=== PATIENT | male | born 1960 | race Two or more races ===

== ENCOUNTER 2020-10-31 00:42 | Inpatient (IN) | payer OTHER ==
[2020-10-31] VITALS (23 sets, daily range): BP systolic 103–124; BP diastolic 60–82
[~2020-10-31] VITALS: Ht 172.7 cm; Wt 81.7 kg
--- NOTE | 2020-10-31 01:09 | NUR ---
Pt BIBA, A&Ox4, thin & pale, skin cool/dry, the body with urine & stool soiled; c/o general bodyaches, cry as arms and trunk touched or moved. Cleaned the body, new gown and sheet given. Safety ensured, monitor on for ekg, oximeter and VS.
[2020-10-31 01:45] LABS: *BLOOD, URINE 3+ (NEGATIVE); *CLARITY,URINE SLIGHTLY CLOUDY (CLEAR); *COLOR,URINE YELLOW (YELLOW); *KETONES,URINE NEGATIVE (NEGATIVE); *UROBILINOGEN,URINE 0.2 E.U./dl (NORMAL); LEUKOCYTE ESTERASE ,URINE 1+ (NEGATIVE); NITRITE, URINE NEGATIVE (NEGATIVE); UGLUCOSE NEGATIVE (NEGATIVE)
[2020-10-31 01:49] LABS: EOSINOPHILS # (AUTO) 0.1 K/uL (0.0-0.7); EOSINOPHILS % (AUTO) 0.4 % (0.0-7.0); NEUTROPHILS # (AUTO) 14.3 K/uL (1.8-8.9); WHITE BLOOD COUNT (AUTO) 15.2 K/uL (3.6-10.2)
[2020-10-31 01:50] LABS: HEMATOCRIT 42.6 % (36.7-47.1); HEMOGLOBIN 14.8 g/dL (12.5-16.3); LYMPHOCYTES # (AUTO) 0.3 K/uL (20.0-40.0); LYMPHOCYTES % (AUTO) 1.8 % (20.5-51.5); MEAN CORPUSCULAR HEMOGLOBIN 34.9 uug (23.8-33.4); MEAN CORPUSCULAR HGB CONC 35 g/dL (32.5-36.3); MEAN CORPUSCULAR VOLUME 100.3 fL (73.0-96.2); MONOCYTES # (AUTO) 0.6 K/uL (2.0-10.0); MONOCYTES % (AUTO) 4.2 % (0.0-11.0); NEUTROPHILS % (AUTO) 93.6 % (38.5-71.5); RED BLOOD CELL COUNT(AUTO) 4.25 MIL/uL (4.06-5.63)
[2020-10-31 01:58] LABS: CREATININE 2.7 mg/dL (0.6-1.3); POTASSIUM 3.5 mmol/L (3.5-5.1)
[2020-10-31 02:00] LABS: *BILIRUBIN,URIN 1+ (NEGATIVE)
[2020-10-31 02:01] LABS: BACTERIA,URINE MANY /HPF (NONE SEEN); MUCUS,URINE FEW /LPF (0-FEW); RBC,URINE 20-50 /HPF (0-3); SQUAMOUS EPITHELIAL CELL,UR FEW /HPF (NONE SEEN); URINE AMORPHOUS URATE MODERATE /HPF; WBC,URINE 80-100 /HPF (0-3)
[2020-10-31 02:03] LABS: PLATELET COUNT (AUTO) 5 K/uL (152-348)
[2020-10-31 02:07] LABS: BILIRUBIN,TOTAL 1.8 mg/dL (0.2-1.0); MAGNESIUM 3.1 mg/dL (1.8-2.4); TOTAL PROTEIN, SERUM 6.9 g/dL (6.4-8.2)
[2020-10-31 02:20] LABS: ABG BASE EXCESS -3.9 mmol/L; ABG HCO3 18.2 mmol/L; ABG PCO2 26.5 mmHg (35.0-45.0); ABG PH 7.455 (7.350-7.450); ABG PO2 63.4 mmHg (75.0-100.0); ABG SITE RIGHT BRACHIAL; ABG TOTAL HEMOGLOBIN 15.1 G/dL (13.5-18.0); COHb 1.5 % (0.5-1.5); MetHb 0.3 % (0.0-1.5); VENT MODE ROOM AIR
[2020-10-31 02:33] LABS: LYMPHOCYTES % (MANUAL) 3 % (20-40); MONOCYTES % (MANUAL) 2 % (2-10); NEUTROPHILS % (MANUAL) 95 % (42-75)
[2020-10-31] MEDS ORDERED: IV NS 1000 ML 1,000 ML IV ONE (02:45)
[2020-10-31] MEDS ORDERED: CEFTRIAXONE 1 G in IV DEXTROSE 5% 50 ML IV ONE (02:45)
[2020-10-31] MEDS ORDERED: CEFTRIAXONE /D5W 50ML IVPB **ER PYXIS IV ONE (03:22)
--- NOTE | 2020-10-31 05:10 | NUR ---
Pt back from CT study. Laying quietly, eyes closed, dozed off. Comfort & safety maintained in pt.
--- NOTE | 2020-10-31 06:04 | NUR ---
Paged [employer] panel consulting business developer, waiting on John Gomez NP to call back.
--- NOTE | 2020-10-31 06:16 | NUR ---
DR Lr speaking with John Gomez NP reservation clerk for [employer] panel.
[2020-10-31] MEDS ORDERED: HYDROCODONE/APAP 5-325MG TABLET PO PRN (06:30)
[2020-10-31] MEDS ORDERED: ONDANSETRON 4 MG/2 ML VIAL IV PRN (06:30)
[2020-10-31] MEDS ORDERED: ACETAMINOPHEN 325 MG TABLET PO PRN (06:30)
[2020-10-31] MEDS ORDERED: Z GUARD REMEDY PASTE 57 GM TUBE TOP PRN (06:30)
[2020-10-31] MEDS ORDERED: NOREPINEPHRINE BITARTRATE 8 MG in IV NORMAL SALINE 242 ML IV PRN (06:30)
[2020-10-31] MEDS ORDERED: DEXTROSE 50% 50 ML DISP.SYRIN IV PRN (06:30)
[2020-10-31] MEDS ORDERED: MORPHINE SULFATE 2 MG/1 ML DISP.SYRIN IV PRN (06:30)
[2020-10-31] MEDS ORDERED: TEMAZEPAM 15 MG CAPSULE PO PRN (06:30)
--- NOTE | 2020-10-31 07:05 | NUR ---
Pt receiving platelet transfusion, no reaction observed. Pt thirsty, given 12 oz. water. Resting comfortably, engaging more lively than initial encounter.
[2020-10-31] MEDS: PANTOPRAZOLE SODIUM 40 MG TABLET.DR PO SCH (07:28)
[2020-10-31] MEDS: BLOOD SUGAR DIAGNOSTIC 1 EACH STRIP VI SCH ×4 (07:30→20:44)
--- NOTE | 2020-10-31 07:47 | NUR ---
received patient in shift report
--- NOTE | 2020-10-31 08:44 | NUR ---
Unable to transfuse second bag of platelets, Lab informed and states with call blood bank for second bag
[2020-10-31 09:23] LABS: BASOPHILS % (AUTO) 0.1 % (0.0-2.0); EOSINOPHILS % (AUTO) 0.4 % (0.0-7.0); LYMPHOCYTES # (AUTO) 0.1 K/uL (20.0-40.0); LYMPHOCYTES % (AUTO) 1.1 % (20.5-51.5)
[2020-10-31 09:25] LABS: HEMATOCRIT 42.3 % (36.7-47.1); HEMOGLOBIN 14.9 g/dL (12.5-16.3); MEAN CORPUSCULAR HEMOGLOBIN 34.9 uug (23.8-33.4); MEAN CORPUSCULAR HGB CONC 35 g/dL (32.5-36.3); MONOCYTES # (AUTO) 0.1 K/uL (2.0-10.0); MONOCYTES % (AUTO) 0.8 % (0.0-11.0); NEUTROPHILS # (AUTO) 11.4 K/uL (1.8-8.9); NEUTROPHILS % (AUTO) 97.6 % (38.5-71.5); RED BLOOD CELL COUNT(AUTO) 4.27 MIL/uL (4.06-5.63); WHITE BLOOD COUNT (AUTO) 11.7 K/uL (3.6-10.2)
--- NOTE | 2020-10-31 09:45 | NUR ---
Pt. admitted to CCU bed 2 , under care of MANAGER FLIGHT Lavonne Moctezuma Belongs List completed and all belongings sent
[2020-10-31 09:49] LABS: PLATELET COUNT (AUTO) 9 K/uL (152-348)
[2020-10-31] MEDS ORDERED: PIPERACILLIN/TAZO 2.25 G in IV DEXTROSE 5% 50 ML IV ONE (12:00)
[2020-10-31] MEDS ORDERED: MEROPENEM 1 G in IV NORMAL SALINE 100 ML IV ONE (13:00)
--- NOTE | 2020-10-31 13:00 | NUR ---
JEET MOTOR SCOOTER REPAIRER/ AND STUDENT IN TO INTERVIEW PATIENT WILL CONSULT HEMOTOLOGY. ADDITIONAL LABS WILL BE ORDERED FOR DIC AND D-DIMER. CONSULTED ID
[2020-10-31] MEDS: INSULIN REGULAR, HUMAN 300 UNIT/3 ML VIAL SQ PRN ×2 (13:37→18:37)
[2020-10-31] MEDS ORDERED: methylPREDNISolone SOD SUCC 125 MG/2 ML VIAL IV STA (17:49)
[2020-10-31 18:20] LABS: BASOPHILS % (AUTO) 0.2 % (0.0-2.0); EOSINOPHILS % (AUTO) 0.1 % (0.0-7.0); HEMATOCRIT 39.6 % (36.7-47.1); HEMOGLOBIN 13.7 g/dL (12.5-16.3); LYMPHOCYTES # (AUTO) 0.2 K/uL (20.0-40.0); LYMPHOCYTES % (AUTO) 1.6 % (20.5-51.5); MEAN CORPUSCULAR HEMOGLOBIN 34.2 uug (23.8-33.4); MEAN CORPUSCULAR HGB CONC 35 g/dL (32.5-36.3); MEAN CORPUSCULAR VOLUME 98.9 fL (73.0-96.2); MONOCYTES % (AUTO) 0.2 % (0.0-11.0); NEUTROPHILS # (AUTO) 12.9 K/uL (1.8-8.9); NEUTROPHILS % (AUTO) 97.9 % (38.5-71.5); WHITE BLOOD COUNT (AUTO) 13.2 K/uL (3.6-10.2)
[2020-10-31 18:22] LABS: PLATELET COUNT (AUTO) 25 K/uL (152-348)
--- NOTE | 2020-10-31 18:23 | NUR ---
ID ORDERED 2ND BLOOD CULTURES. LAB IN THE UNIT TO DRAW. JOSUÉ HEMOTOLOGY PATIENT HISTORY OF LUPUS WILL START SOLUMEDROL IV TO MAINTAIN PLATELET LEVEL EFFECTIVELY WITH TRANSFUSION. LAB CALLED PLATELET LEVEL TO 25 TREND INCREASING. NO NEED TO INFORM PHYSICIAN. CONTINUE TO TRANSFUSE 3RD UNIT OF PLATELET. LAB CALLED [facility] THAT PLATELET READY.
[2020-10-31] MEDS: methylPREDNISolone SOD SUCC 125 MG/2 ML VIAL IV SCH ×2 (18:44→22:16)
--- NOTE | 2020-10-31 19:30 | NUR ---
Report received. Patient awake, alert eating dinner. NAD noted and able to make needs known. Complete assessment done. Addendum: 11/01/20 at 0204 by ELISSA MUÑOZ RN Amended: Links added.
[2020-10-31] MEDS ORDERED: PIPERACILLIN SODIUM/TAZOBACTAM 3.37 G in IV DEXTROSE 5% 100 ML IV SCH (20:00)
--- NOTE | 2020-10-31 20:07 | NUR ---
Platelets transfusion started via RAC IV site.
[2020-10-31] MEDS: INSULIN REGULAR, HUMAN 300 UNITS/3 ML VIAL SQ PRN (20:47)
[2020-10-31] MEDS: IV NS 1000 ML 1,000 ML IV PRN (20:49)
--- NOTE | 2020-10-31 21:00 | NUR ---
Spoke to Rambo Moctezuma re: platelets transfusion. Order received to repeat CBC after 2 units of platelets are completed.
[2020-10-31 22:13] LABS: BAND % (MANUAL) 9 % (0-10); LYMPHOCYTES % (MANUAL) 1 % (20-40); METAMYELOCYTES % 2 % (0-1); MONOCYTES % (MANUAL) 1 % (2-10); NEUTROPHILS % (MANUAL) 87 % (42-75)
[2020-10-31 22:17] LABS: BAND % (MANUAL) 6 % (0-10); LYMPHOCYTES % (MANUAL) 2 % (20-40); METAMYELOCYTES % 2 % (0-1); MONOCYTES % (MANUAL) 1 % (2-10); NEUTROPHILS % (MANUAL) 89 % (42-75)
[2020-10-31 23:53] LABS: *RHEUMATOID FACTOR SCREEN NEGATIVE (NEGATIVE)
--- NOTE | 2020-10-31 23:56 | NUR ---
Platelets transfusion completed. Repeat CBC ordered.
[2020-11-01] VITALS (28 sets, daily range): BP systolic 103–131; BP diastolic 62–83
[2020-11-01 00:13] LABS: BASOPHILS % (AUTO) 0.4 % (0.0-2.0); EOSINOPHILS % (AUTO) 0.1 % (0.0-7.0); HEMATOCRIT 39.6 % (36.7-47.1); HEMOGLOBIN 13.8 g/dL (12.5-16.3); LYMPHOCYTES # (AUTO) 0.3 K/uL (20.0-40.0); LYMPHOCYTES % (AUTO) 2.5 % (20.5-51.5); MEAN CORPUSCULAR HEMOGLOBIN 34.6 uug (23.8-33.4); MEAN CORPUSCULAR HGB CONC 35 g/dL (32.5-36.3); MONOCYTES # (AUTO) 0.3 K/uL (2.0-10.0); MONOCYTES % (AUTO) 3.3 % (0.0-11.0); NEUTROPHILS # (AUTO) 9.6 K/uL (1.8-8.9); NEUTROPHILS % (AUTO) 93.7 % (38.5-71.5); PLATELET COUNT (AUTO) 53 K/uL (152-348); WHITE BLOOD COUNT (AUTO) 10.3 K/uL (3.6-10.2)
--- NOTE | 2020-11-01 00:30 | NUR ---
Results of platelet count called to Juan Carlos Gomez; order received. Lab notified, spoke to Sukhjinder re: 1 unit platelets ordered. As per Sukhjinder it wont be ready until professor of early childhood education. Addendum: 11/01/20 at 0320 by ELISSA MUÑOZ RN Amended: Links added.
[2020-11-01] MEDS: MEROPENEM 1 G in IV NORMAL SALINE 100 ML IV SCH ×2 (00:37→13:09)
[2020-11-01 05:05] LABS: BASOPHILS % (AUTO) 0.1 % (0.0-2.0); MONOCYTES # (AUTO) 0.1 K/uL (2.0-10.0); RED BLOOD CELL COUNT(AUTO) 4.13 MIL/uL (4.06-5.63)
[2020-11-01 05:07] LABS: EOSINOPHILS % (AUTO) 0.2 % (0.0-7.0); HEMOGLOBIN 14.3 g/dL (12.5-16.3); LYMPHOCYTES # (AUTO) 0.3 K/uL (20.0-40.0); LYMPHOCYTES % (AUTO) 2.6 % (20.5-51.5); MEAN CORPUSCULAR HEMOGLOBIN 34.5 uug (23.8-33.4); MEAN CORPUSCULAR HGB CONC 35 g/dL (32.5-36.3); MEAN CORPUSCULAR VOLUME 99.2 fL (73.0-96.2); MONOCYTES % (AUTO) 1.2 % (0.0-11.0); NEUTROPHILS # (AUTO) 9.2 K/uL (1.8-8.9); NEUTROPHILS % (AUTO) 95.9 % (38.5-71.5); WHITE BLOOD COUNT (AUTO) 9.6 K/uL (3.6-10.2)
[2020-11-01 05:12] LABS: PLATELET COUNT (AUTO) 37 K/uL (152-348)
[2020-11-01 05:13] LABS: CREATININE 1.6 mg/dL (0.6-1.3); PHOSPHOROUS 4.2 mg/dL (2.5-4.9); POTASSIUM 3.6 mmol/L (3.5-5.1)
[2020-11-01 05:22] LABS: THYROID STIMULATING HORMONE 0.53 mIU/mL (0.358-3.740)
[2020-11-01] MEDS: methylPREDNISolone SOD SUCC 125 MG/2 ML VIAL IV SCH ×3 (05:42→22:05)
--- NOTE | 2020-11-01 05:55 | NUR ---
Abnormal labs including platelet count called to Juan Carlos Gomez; orders received. Addendum: 11/01/20 at 0649 by ELISSA MUÑOZ RN Amended: Links added.
[2020-11-01] MEDS: PANTOPRAZOLE SODIUM 40 MG TABLET.DR PO SCH (06:33)
[2020-11-01] MEDS: BLOOD SUGAR DIAGNOSTIC 1 EACH STRIP VI SCH ×4 (06:52→20:48)
[2020-11-01] MEDS: INSULIN REGULAR, HUMAN 300 UNIT/3 ML VIAL SQ PRN ×3 (06:53→17:07)
--- NOTE | 2020-11-01 07:20 | NUR ---
Platelet infusing without problems. VS stable.
--- NOTE | 2020-11-01 09:03 | NUR ---
pt completed tranfusion of platelets which was started from lead pastor. no adverse reactions noted. repeat platelet lab also completed showing an increase from 37 to 49, however still low. lab results relayed to RASHARD Lawrence with new order to give another bag of platelets followed by repeat lab. order placed and blood bank called. per blood bank, they usually don't have it in stock and have to order it which will take around 4-5 hours. RASHARD Lawrence informed.
--- NOTE | 2020-11-01 09:14 | NUR ---
rehab services PT at bedside for assessment/evaluation
[2020-11-01] MEDS ORDERED: MORPHINE SULFATE 4 MG/1 ML DISP.SYRIN IV PRN (09:15)
--- NOTE | 2020-11-01 09:25 | NUR ---
pt completed PT evaluation. Per PT, pt tolerated well and was able to stand up and take side steps.
--- NOTE | 2020-11-01 10:36 | NUR ---
Jesse Valdez in the unit to see and assess pt. full report given
--- NOTE | 2020-11-01 12:20 | NUR ---
correction note EMAR: pt accucheck AC lunch was 338. given 12 units regular insulin (humulin R) as per sliding scale. initial documentation on emar incorrectly written as 8 units however pt received 12 units correctly as ordered.
--- NOTE | 2020-11-01 13:03 | NUR ---
pt seen and assessed by ALLI José who is working with Dr. Arnaldo Lawrence. full report given. she asked if needed something from Dr. Lawrence, informed her that per shift mgr, ask provider if they want to order Lantus for night time as pt's accuchecks have been in the 300s. She said she will check his hgba1c first and follow up with Dr. Lawrence
[2020-11-01] MEDS: IV NS 1000 ML 1,000 ML IV PRN (13:09)
--- NOTE | 2020-11-01 14:26 | NUR ---
received telephone call from RASHARD Lawrence. Per Dr. Lawrence, pt is okay to go to IR for nephrostomy placement. informed Dr. Lawrence that pt is currently receiving platelets and he said pt can go to IR after platelet infusion. Asked if he wanted to re-order platelet lab after transfusion and he said no need, pt can just go to IR. also asked Dr. Lawrence if he's placing order for procedure and he said there is already an order. Informed him that the only order I see states if platelets >80 may continue with nephrostomy tube. per Dr. Lawrence change order to okay for pt to go to IR for nephrostomy placement
--- NOTE | 2020-11-01 14:48 | NUR ---
Called radiology to follow up on IR guided left nephostomy tube placement for pt. Obtain tel# [phone] Garland who will be doing procedure. Spoke to Dr. Garland on the telephone to ask he will be doing it today and ask if he has any orders. Per , procedure will likely not happen today but maybe tomorrow morning. also asked about pt's platelet and INR level to which I informed him. Also informed MD that pt currently has platelets running right now. New orders received from for repeat platelet lab tomorrow morning and NPO after midnight. stated that he will call RASHARD Lawrence regarding the procedure because he does not think there is enough hydronephrosis on the CT scan for pt to need the procedure at this time. I left messsage for RASHARD Lawrence about what Dr. Garland stated. will follow up if procedure will still happen tomorrow and if pt needs to be NPO at midnight.
--- NOTE | 2020-11-01 15:06 | NUR ---
Received call from radiology that Dr. Garland had already spoken to RASHARD Lawrence about the procedure and that it has been decided the procedure will not happen at this time. RASHARD Lawrence cancelled order for procedure. Addendum: 11/01/20 at 1509 by JARRETT RAI RN pt is informed that procedure will not happen
--- NOTE | 2020-11-01 16:20 | NUR ---
SCARIFIER OPERATOR Holli Gregory in the unit to see and assess pt. full report given
--- NOTE | 2020-11-01 16:21 | NUR ---
pt completed platelet transfusion with no adverse reactions noted. see transfusion sheet
--- NOTE | 2020-11-01 19:01 | NUR ---
shift report given to planning aide RN. pt in bed, alert and verbally responsive, able to make needs known. pt was placed on 1st step mattress. pt on room air. pt on NS @75ml/hr, RAC and (L) wrist peripheral IV access both patent. Jones cath in place. VSS. pt given kept clean and dry.
--- NOTE | 2020-11-01 19:30 | NUR ---
Report received; care assumed. Patient sleeping easily awakens to name, oriented to place and time. Mumbles at times. NAD noted. Monitor SR rate 80's -90's. Denies any discomfort but with mild generalized weakness. Turned and repositioned. Assessment done; see flow sheet for complete data. Addendum: 11/01/20 at 2232 by ELISSA MUÑOZ RN Amended: Links added. Addendum: 11/01/20 at 2235 by ELISSA MUÑOZ RN Amended: Links added.
--- NOTE | 2020-11-01 20:20 | NUR ---
Seen by Tram WHEEL CLEANER; updated of patient's condition. No new orders.
[2020-11-01] MEDS: INSULIN REGULAR, HUMAN 300 UNITS/3 ML VIAL SQ PRN (20:57)
[2020-11-01] MEDS ORDERED: INSULIN GLARGINE,HUM 300 UNITS/3 ML CARTRIDGE SQ SCH (21:00)
--- NOTE | 2020-11-01 21:15 | NUR ---
Dr. Iraheta here; informed of patient's condition. No new orders. Addendum: 11/01/20 at 2236 by ELISSA MUÑOZ RN Amended: Links added.
--- NOTE | 2020-11-01 21:30 | NUR ---
Sleeping, desaturates to the 80's when asleep. Awakens easily. Placed on O2 2L NC. Monitored closely. Addendum: 11/01/20 at 2345 by ELISSA MUÑOZ RN Amended: Links added. Addendum: 11/01/20 at 2346 by ELISSA MUÑOZ RN Amended: Links added. Addendum: 11/01/20 at 2346 by ELISSA MUÑOZ RN Amended: Links added. Addendum: 11/01/20 at 2346 by ELISSA MUÑOZ RN Amended: Links added. Addendum: 11/01/20 at 2347 by ELISSA MUÑOZ RN Amended: Links added. Addendum: 11/01/20 at 2347 by ELISSA MUÑOZ RN Amended: Links added. Addendum: 11/02/20 at 0010 by ELISSA MUÑOZ RN Amended: Links added.
[2020-11-02] VITALS (17 sets, daily range): BP systolic 97–127; BP diastolic 60–87
[2020-11-02] MEDS: MEROPENEM 1 G in IV NORMAL SALINE 100 ML IV SCH ×2 (01:07→14:33)
[2020-11-02] MEDS: IV NS 1000 ML 1,000 ML IV PRN ×2 (03:59→20:06)
[2020-11-02 05:06] LABS: HEPATITIS B SURFACE AB Non Reactive (.); HEPATITIS B SURFACE AG Positive (Negative)
[2020-11-02] MEDS: methylPREDNISolone SOD SUCC 125 MG/2 ML VIAL IV SCH ×3 (05:21→21:28)
[2020-11-02 05:25] LABS: LYMPHOCYTES # (AUTO) 0.3 K/uL (20.0-40.0); MONOCYTES # (AUTO) 0.6 K/uL (2.0-10.0); NEUTROPHILS # (AUTO) 12.2 K/uL (1.8-8.9); WHITE BLOOD COUNT (AUTO) 13.1 K/uL (3.6-10.2)
[2020-11-02 05:27] LABS: BASOPHILS % (AUTO) 0.1 % (0.0-2.0); HEMATOCRIT 38.3 % (36.7-47.1); HEMOGLOBIN 13.3 g/dL (12.5-16.3); LYMPHOCYTES % (AUTO) 2.2 % (20.5-51.5); MEAN CORPUSCULAR HEMOGLOBIN 34.8 uug (23.8-33.4); MEAN CORPUSCULAR HGB CONC 35 g/dL (32.5-36.3); MEAN CORPUSCULAR VOLUME 100.1 fL (73.0-96.2); MONOCYTES % (AUTO) 4.8 % (0.0-11.0); NEUTROPHILS % (AUTO) 92.9 % (38.5-71.5); RED BLOOD CELL COUNT(AUTO) 3.82 MIL/uL (4.06-5.63)
[2020-11-02 05:41] LABS: PLATELET COUNT (AUTO) 36 K/uL (152-348)
[2020-11-02] MEDS: PANTOPRAZOLE SODIUM 40 MG TABLET.DR PO SCH (06:26)
[2020-11-02] MEDS: BLOOD SUGAR DIAGNOSTIC 1 EACH STRIP VI SCH ×4 (06:37→20:16)
--- NOTE | 2020-11-02 06:45 | NUR ---
Spoke to Juan Carlos Gomez re: low platelets. No transfusion order for now. Patient remains on O2 2L NC; still desaturates when fast asleep. BPs stable.
[2020-11-02] MEDS: INSULIN REGULAR, HUMAN 300 UNIT/3 ML VIAL SQ PRN ×3 (07:19→16:38)
[2020-11-02] MEDS: GLUCERNA SHAKE VANILLA 237 ML CAN PO SCH (08:21)
--- NOTE | 2020-11-02 09:30 | NUR ---
Pt.was seen by ALONDRA NUR NP
[2020-11-02 09:43] LABS: BILIRUBIN,DIRECT 0.3 mg/dL (0.0-0.2); BILIRUBIN,TOTAL 0.9 mg/dL (0.2-1.0); TOTAL PROTEIN, SERUM 5.5 g/dL (6.4-8.2)
[2020-11-02 10:42] LABS: CREATININE 1.3 mg/dL (0.6-1.3)
[2020-11-02 10:52] LABS: POTASSIUM 3.6 mmol/L (3.5-5.1)
--- NOTE | 2020-11-02 11:50 | NUR ---
Pt.was seen by ANDREW ASIF DNP
[2020-11-02] MEDS ORDERED: INSULIN LISPRO 1000 UNITS/10 ML VIAL(HUMALOG) SQ SCH (12:15)
[2020-11-02] MEDS ORDERED: INSULIN REGULAR, HUMAN 300 UNITS/3 ML VIAL SQ PRN (12:30)
--- NOTE | 2020-11-02 14:40 | NUR ---
SBAR REPORT GIVEN TO JANNET.PT.TRANSFERRED TO 302.TOLERATED WELL,NO S/S OF DISTRESS.
--- NOTE | 2020-11-02 14:46 | NUR ---
pt received from ccu via wheel chair in stable condition to room 302 ,pt is [id number] are stable call light with in reach
[2020-11-02 16:29] LABS: ANTI-DNA(DS) AB, QN 1
[2020-11-02 16:30] LABS: *ANTI-SCLERODERMA-70 AB <0.2; *SJOGREN'S ANTI-SS-A <0.2; *SMITH ANTIBODIES <0.2
[2020-11-02 16:31] LABS: *SJOGREN'S ANTI-SS-B <0.2
[2020-11-02 16:34] LABS: *IMMUNOGLOBULIN G, SERUM 1031; IMMUNOGLOBULIN A, SERUM 373
[2020-11-02 16:35] LABS: IMMUNOGLOBULIN M, SERUM 63
[2020-11-02 16:45] LABS: ALBUMIN 2.3 LOW
[2020-11-02 16:46] LABS: ALPHA-1-GLOBULIN 0.4; ALPHA-2-GLOBULIN 0.8
[2020-11-02 16:47] LABS: GLOBULIN, TOTAL 3.2; M-SPIKE Not Observed
[2020-11-02 16:48] LABS: A/G RATIO 0.7
[2020-11-02 17:05] LABS: *OCCULT BLOOD STOOL POSITIVE (NEGATIVE)
[2020-11-02] MEDS ORDERED: INSULIN GLARGINE,HUM 300 UNITS/3 ML CARTRIDGE SQ SCH (21:00)
[2020-11-03] MEDS: MEROPENEM 1 G in IV NORMAL SALINE 100 ML IV SCH
[2020-11-03 05:33] VITALS: BP 94/56
[2020-11-03] MEDS: methylPREDNISolone SOD SUCC 125 MG/2 ML VIAL IV SCH ×2 (06:08→14:22)
[2020-11-03] MEDS: PANTOPRAZOLE SODIUM 40 MG TABLET.DR PO SCH (06:09)
[2020-11-03] MEDS: BLOOD SUGAR DIAGNOSTIC 1 EACH STRIP VI SCH ×4 (06:36→21:12)
--- NOTE | 2020-11-03 06:36 | NUR ---
Pt slept throughout the night. Denies pain or SOB. On 2L NC throughout the night for comfort and to prevent pt from desating. Saturated 96%. Tolerated all medications well, IV site patent and intact. Bed is locked and in lowest position, call light is within reach. No other issues or concerns at this time. Will endorse to day shift.
[2020-11-03 07:16] LABS: CREATININE 0.9 mg/dL (0.6-1.3); MAGNESIUM 1.9 mg/dL (1.8-2.4); PHOSPHOROUS 3.2 mg/dL (2.5-4.9); POTASSIUM 3.7 mmol/L (3.5-5.1)
--- NOTE | 2020-11-03 07:30 | NUR ---
received change of shift report. pt awake alert and orientedx4, pt is bedbound, uses knapp to void, incontinent, pt in diaper. pt on 2L O2 saturating at 98%, no signs of distress, no reports of pain at this time. IV site on the right FA 20g IVF infusing at 75cc. Pt on first step mattress, bed in low and locked position, call light within reach, safety and fall precautions in place, HOB semi fowlers, side rails upx2. Will continue with plan of care.
[2020-11-03 09:00] LABS: BASOPHILS # (AUTO) 0.2 K/uL (0.0-8.0); BASOPHILS % (AUTO) 1.3 % (0.0-2.0); HEMATOCRIT 38.8 % (36.7-47.1); HEMOGLOBIN 13.2 g/dL (12.5-16.3); LYMPHOCYTES # (AUTO) 0.3 K/uL (20.0-40.0); LYMPHOCYTES % (AUTO) 1.7 % (20.5-51.5); MEAN CORPUSCULAR HEMOGLOBIN 34.1 uug (23.8-33.4); MEAN CORPUSCULAR HGB CONC 34 g/dL (32.5-36.3); MONOCYTES % (AUTO) 0.2 % (0.0-11.0); NEUTROPHILS # (AUTO) 18.7 K/uL (1.8-8.9); NEUTROPHILS % (AUTO) 96.8 % (38.5-71.5); RED BLOOD CELL COUNT(AUTO) 3.87 MIL/uL (4.06-5.63); WHITE BLOOD COUNT (AUTO) 19.3 K/uL (3.6-10.2)
[2020-11-03 09:05] LABS: PLATELET COUNT (AUTO) 38 K/uL (152-348)
[2020-11-03] MEDS: GLUCERNA SHAKE VANILLA 237 ML CAN PO SCH (09:30)
[2020-11-03] MEDS: INSULIN REGULAR, HUMAN 300 UNIT/3 ML VIAL SQ PRN ×3 (09:33→17:43)
[2020-11-03 10:06] LABS: *ANTI-SCLERODERMA-70 AB <0.2 AI (0.0-0.9); *SJOGREN'S ANTI-SS-A <0.2 AI (0.0-0.9); *SJOGREN'S ANTI-SS-B <0.2 AI (0.0-0.9); *SMITH ANTIBODIES <0.2 AI (0.0-0.9); ANTI-DNA(DS) AB, QN 1 IU/mL (0-9)
[2020-11-03] MEDS: levoFLOXacin 750 MG TABLET PO SCH (11:10)
[2020-11-03 12:35] VITALS: BP 101/65
--- NOTE | 2020-11-03 13:30 | NUR ---
handoff report given to Shantelle.
[2020-11-03 15:07] VITALS: BP 113/72
[2020-11-03 16:04] LABS: BAND % (MANUAL) 2 % (0-10); LYMPHOCYTES % (MANUAL) 4 % (20-40); MONOCYTES % (MANUAL) 2 % (2-10); NEUTROPHILS % (MANUAL) 92 % (42-75)
--- NOTE | 2020-11-03 18:52 | NUR ---
pt in bed resting, awake alert and oriented x4, pt is bed bound, uses knapp to void, pt is incontinent, has diaper. pt on 1L NC O2, no signs of distress noted, no reports of pain at this time. IV access on the right FA 20g, patent and intact, saline lock. pt ACHS accuchecks. bed in low and locked position, call light within reach, all medications given as ordered, will endorse to oncoming nurse.
--- NOTE | 2020-11-03 20:00 | NUR ---
Received pt in bed, awake and verbally responsive, able to make needs known. On room air saturating 99%, no s/s of respiratory distress. Denies any pain at this moment. IV access intact and patent, Jones draining well. Safety measures initiated, call light within reach, will continue to monitor.
[2020-11-03 20:56] VITALS: BP 102/64
[2020-11-03] MEDS: TAMSULOSIN HCL 0.4 MG CAP.SR.24H PO SCH (21:11)
[2020-11-03] MEDS: INSULIN GLARGINE,HUM 300 UNITS/3 ML CARTRIDGE SQ SCH (21:15)
[2020-11-04 05:11] VITALS: BP 93/63
--- NOTE | 2020-11-04 05:54 | NUR ---
Pt slept through the night, no s/s/ of respiratory distress, no pain or discomfort reported, tolerated medications well. Jones draining well. Safety measures maintained at all times, call light within reach, all needs attended.
[2020-11-04] MEDS: PANTOPRAZOLE SODIUM 40 MG TABLET.DR PO SCH (06:15)
[2020-11-04] MEDS: BLOOD SUGAR DIAGNOSTIC 1 EACH STRIP VI SCH ×4 (06:52→21:20)
[2020-11-04] MEDS: INSULIN REGULAR, HUMAN 300 UNIT/3 ML VIAL SQ PRN ×3 (07:25→16:36)
[2020-11-04] MEDS: GLUCERNA SHAKE VANILLA 237 ML CAN PO SCH (07:54)
[2020-11-04] MEDS: levoFLOXacin 750 MG TABLET PO SCH (09:38)
[2020-11-04 09:39] LABS: EOSINOPHILS % (AUTO) 0.3 % (0.0-7.0); HEMATOCRIT 40.6 % (36.7-47.1); HEMOGLOBIN 13.8 g/dL (12.5-16.3); LYMPHOCYTES # (AUTO) 0.5 K/uL (20.0-40.0); LYMPHOCYTES % (AUTO) 3.2 % (20.5-51.5); MEAN CORPUSCULAR HEMOGLOBIN 34.1 uug (23.8-33.4); MEAN CORPUSCULAR HGB CONC 34 g/dL (32.5-36.3); MEAN CORPUSCULAR VOLUME 100.1 fL (73.0-96.2); MONOCYTES # (AUTO) 0.1 K/uL (2.0-10.0); MONOCYTES % (AUTO) 0.5 % (0.0-11.0); NEUTROPHILS # (AUTO) 14.3 K/uL (1.8-8.9); RED BLOOD CELL COUNT(AUTO) 4.05 MIL/uL (4.06-5.63)
[2020-11-04 09:44] LABS: CREATININE 0.9 mg/dL (0.6-1.3); MAGNESIUM 1.5 mg/dL (1.8-2.4); PHOSPHOROUS 2.8 mg/dL (2.5-4.9); POTASSIUM 3.9 mmol/L (3.5-5.1)
[2020-11-04 09:55] LABS: PLATELET COUNT (AUTO) 43 K/uL (152-348)
[2020-11-04 11:54] LABS: BAND % (MANUAL) 1 % (0-10); EOSINOPHILS % (MANUAL) 1 % (0-8); LYMPHOCYTES % (MANUAL) 5 % (20-40); MONOCYTES % (MANUAL) 1 % (2-10); NEUTROPHILS % (MANUAL) 92 % (42-75)
[2020-11-04 12:23] VITALS: BP 90/51
[2020-11-04 13:21] VITALS: BP_SYST 86; BP_SYST 88; BP_SYST 94; BP_DIAS 58; BP_DIAS 60; BP_DIAS 64
[2020-11-04] MEDS ORDERED: IV NS 1000 ML 1,000 ML IV ONE (14:30)
[2020-11-04] MEDS ORDERED: ALBUMIN HUMAN 25% 100 ML IV ONE (14:30)
[2020-11-04 15:35] VITALS: BP 109/68
[2020-11-04] MEDS: TAMSULOSIN HCL 0.4 MG CAP.SR.24H PO SCH (20:28)
[2020-11-04 20:43] VITALS: BP 90/52
[2020-11-04] MEDS: INSULIN GLARGINE,HUM 300 UNITS/3 ML CARTRIDGE SQ SCH (22:27)
[2020-11-05 04:54] VITALS: BP 92/53
[2020-11-05] MEDS: PANTOPRAZOLE SODIUM 40 MG TABLET.DR PO SCH (06:45)
[2020-11-05] MEDS: BLOOD SUGAR DIAGNOSTIC 1 EACH STRIP VI SCH ×3 (06:52→16:30)
[2020-11-05 06:54] LABS: BASOPHILS % (AUTO) 0.1 % (0.0-2.0); EOSINOPHILS # (AUTO) 0.1 K/uL (0.0-0.7); EOSINOPHILS % (AUTO) 0.5 % (0.0-7.0); HEMATOCRIT 39.2 % (36.7-47.1); HEMOGLOBIN 13.4 g/dL (12.5-16.3); LYMPHOCYTES # (AUTO) 0.6 K/uL (20.0-40.0); LYMPHOCYTES % (AUTO) 3.9 % (20.5-51.5); MEAN CORPUSCULAR HEMOGLOBIN 34.3 uug (23.8-33.4); MEAN CORPUSCULAR HGB CONC 34 g/dL (32.5-36.3); MEAN CORPUSCULAR VOLUME 100.2 fL (73.0-96.2); MONOCYTES # (AUTO) 0.4 K/uL (2.0-10.0); MONOCYTES % (AUTO) 2.4 % (0.0-11.0); NEUTROPHILS # (AUTO) 14.7 K/uL (1.8-8.9); NEUTROPHILS % (AUTO) 93.1 % (38.5-71.5); RED BLOOD CELL COUNT(AUTO) 3.91 MIL/uL (4.06-5.63); WHITE BLOOD COUNT (AUTO) 15.7 K/uL (3.6-10.2)
--- NOTE | 2020-11-05 07:03 | NUR ---
End of Shift Report: Patient slept most of the night, AOx3, no s/s of respiratory distress, no pain or discomfort reported, tolerated medications well. Jones intact and draining well. Safety measures maintained at all times, call light within reach, bed is in low locked position with side rails x2. All needs attended to promptly. Will endorse to the oncoming shift
[2020-11-05 07:06] LABS: MAGNESIUM 1.6 mg/dL (1.8-2.4); PHOSPHOROUS 3.6 mg/dL (2.5-4.9); POTASSIUM 4.3 mmol/L (3.5-5.1)
[2020-11-05 07:26] LABS: PLATELET COUNT (AUTO) 44 K/uL (152-348)
[2020-11-05] MEDS: GLUCERNA SHAKE VANILLA 237 ML CAN PO SCH (07:57)
[2020-11-05] MEDS: levoFLOXacin 750 MG TABLET PO SCH (09:54)
[2020-11-05] MEDS ORDERED: TEMA15CA5 PO (10:23)
[2020-11-05] MEDS ORDERED: TAMS-3 PO (10:23)
[2020-11-05] MEDS ORDERED: PANT40TA2 PO (10:23)
[2020-11-05] MEDS ORDERED: ACET325T53 PO (10:23)
[2020-11-05] MEDS ORDERED: levoFLOXacin PO (10:23)
[2020-11-05] MEDS ORDERED: Insulin Glargine,Hum SQ (10:23)
[2020-11-05] MEDS ORDERED: MIDO2.5T2 PO (10:23)
[2020-11-05] MEDS ORDERED: IV NS 1000 ML 1,000 ML IV ONE (10:45)
[2020-11-05] MEDS: MIDODRINE HCL 2.5 MG TABLET PO SCH ×2 (11:21→15:23)
[2020-11-05] MEDS: INSULIN REGULAR, HUMAN 300 UNIT/3 ML VIAL SQ PRN (11:23)
[2020-11-05] MEDS: MAGNESIUM SULFATE/D5W 100 ML IV SCH ×4 (11:27→14:08)
[2020-11-05 12:00] VITALS: BP 88/55
--- NOTE | 2020-11-05 12:46 | NUR ---
dc fc per md order 1000 ml urine out put noted
--- NOTE | 2020-11-05 14:22 | NUR ---
rn report given to half-way erick avendaño
[2020-11-05 15:07] LABS: LYMPHOCYTES % (MANUAL) 6 % (20-40); MONOCYTES % (MANUAL) 4 % (2-10); NEUTROPHILS % (MANUAL) 90 % (42-75)
[2020-11-05 16:00] VITALS: BP 85/50
--- NOTE | 2020-11-05 18:51 | NUR ---
dc orders received noted and carried out.dc instruction and rn report given to the retirement ,xuan benítez per md orders,pt left the facility via ambulances in stable condition
== END 2020-11-05 18:55 | DRG 720 ==
LOC: ER 00:44 → CCU 09:25 → MEDSURG3 11-02 14:36
PROVIDERS: ADMIT Registered Nurse; ATTEND Nurse Practitioner Acute Care
PROC: 30233R1 Transfusion of Nonautologous Platelets into Peripheral Vein, Percutaneous Approach (ICD-10-PCS; principal; 2020-10-31)
DX: A41.51 Sepsis due to Escherichia coli [E. coli] (principal); N17.0 Acute kidney failure with tubular necrosis; E43 Unspecified severe protein-calorie malnutrition; I50.33 Acute on chronic diastolic (congestive) heart failure; N13.6 Pyonephrosis; D69.59 Other secondary thrombocytopenia; M32.19 Other organ or system involvement in systemic lupus erythematosus; D53.9 Nutritional anemia, unspecified; E83.41 Hypermagnesemia; Z20.822 Contact with and (suspected) exposure to COVID-19; I25.10 Atherosclerotic heart disease of native coronary artery without angina pectoris; Z95.2 Presence of prosthetic heart valve; Z95.1 Presence of aortocoronary bypass graft; Z82.3 Family history of stroke; Z74.01 Bed confinement status; Z91.81 History of falling; R74.01 Elevation of levels of liver transaminase levels; E88.09 Other disorders of plasma-protein metabolism, not elsewhere classified; E11.22 Type 2 diabetes mellitus with diabetic chronic kidney disease; R19.5 Other fecal abnormalities; Z91.19 Patient's noncompliance with other medical treatment and regimen; E11.65 Type 2 diabetes mellitus with hyperglycemia; E87.0 Hyperosmolality and hypernatremia; G72.81 Critical illness myopathy; M32.9 Systemic lupus erythematosus, unspecified; Z68.27 Body mass index [BMI] 27.0-27.9, adult; Z79.4 Long term (current) use of insulin; E86.0 Dehydration; I95.9 Hypotension, unspecified; F19.11 Other psychoactive substance abuse, in remission; B19.10 Unspecified viral hepatitis B without hepatic coma
CPT/HCPCS: 36415; 36600; 70030-TC; 71045; 82784; 83735; 84100; 84155; 84165; 84443; 85025; 85049; 85610; 85651; 85730; 86038; 86140; 86334; 86430; 86706; 86803; 86850; 86900; 86901; 87040; 87077; 87086; 87340; 87806; 93005; A4663; C1758; G0378; J0696; J1815; J2185; J2543; J2930; J3475; J3490; J7030; J7040; J7050; J7060; P9035-BL; P9047